=== PATIENT | male | born 1965 | race African-American/Black ===

== ENCOUNTER 2016-08-08 19:00 | Observation (INO) ==
[2016-08-08] MEDS ORDERED: SODIUM CHLORIDE 0.9% 1,000 ML IV STA (19:35)
[2016-08-08] MEDS ORDERED: INSULIN REGULAR 100 UNIT/ML IV STA ×2 (19:35→20:54)
[2016-08-08] MEDS ORDERED: INSULIN REGULAR 100 UNIT/ML ONE (19:45)
--- NOTE | 2016-08-08 19:51 | Emergency Department Note ---
I, Tania Mack, am scribing for, and in the presence of, Nathaly Jim DO 19:43. IHernán Debra, DO, personally performed the services described in this documentation, ascribed by Tania Mack in my presence, and it is both accurate and complete 949 . Arrival - Arrival Chief Complaint: Non-Specific Stated Complaint: DM complications ED Nursing Triage Note: [facility] with c/o elevated blood sugar, 584 at 1840. was seen at [facility] today with a blood in the 800's and was treated and sent home. Mode of Arrival: Stretcher Limitations: No Limitations Source: Patient - History of Present Illness HPI Narrative: Pt is a 50 y/o male who came to ED with c/o elevated glucose of 584 after being seen at [facility] earlier today for glucose in the 800s. Pt has associated sx of extreme thirstiness. He reports coming from [place], [place], today to be seen at [facility] due to [facility] provider is no longer available, since he moved out of [facility] , because of his blood sugar over 800. He states Gandhi lowered the glucose in the 400s, and was d/c. He notes not having a ride and was EMS found him on the road which checked his glucose and was in the 500s, which had shot back up. Pt has not ate a meal since yesterday, and is confused why the blood sugar level would be so high. PMHx of IDDM, HTN. Onset (ago): hour(s) Consistency: constant Severity: mild, moderate Severity scale (1-10): 4 Quality: other Allergies/Adverse Reactions: Allergies Allergy/AdvReac Type Severity Reaction Status Date / Time No Known Allergies Allergy Verified 12/14/14 07:37 Home Medications: Home Medications Medication Instructions Recorded Confirmed Type Insulin NPH Hum/Reg Insulin Hm 25 unit SUBCUT QPM 30 Days 12/16/14 08/08/16 Rx [NovoLIN 70/30] Insulin NPH Hum/Reg Insulin Hm 35 unit SUBCUT QAM 30 Days 12/16/14 08/08/16 Rx [NovoLIN 70/30] Lisinopril/Hydrochlorothiazide 1 each PO QAM 08/08/16 08/08/16 History [Lisinopril-Hctz 10-12.5 mg Tab] Review of System - Review of System 12 point system: reviewed and no additional remarkable complaints except as stated - Review of System Constitutional: Absent: fever, weakness Respiratory: Absent: respiratory distress Cardiovascular: Absent: chest pain, syncope Gastrointestinal: Absent: abdominal pain Skin: Absent: rash Endocrine: Present: polydipsia (extreme) Medical,Surgical,& Family Hx - Medical History Cardio: History of: Hypertension No history of: [place] Neurology: No history of: Peripheral Neuropathy (both feet at times) Endocrine: History of: Diabetes Mellitus (IDDM) No history of: Dyslipidemia - Surgical History Surgical History: noncontributory - Family History Family History: Reports;: Family Diabetes, Family Heart Disease, Family Hypertension - Social History Smoking Status: Never smoker Frequency of Alcohol Use: None Type of Drug Use: None Marital Status: Single Functional capacity: independent ambulation Exam Vital Signs: Vital Signs Temperature 98.4 F 08/08/16 19:12 Pulse Rate 96 H 08/08/16 19:12 Respiratory Rate 20 08/08/16 19:12 Blood Pressure 147/93 08/08/16 19:12 O2 Sat by Pulse Oximetry 100 08/08/16 19:12 Course Course Narrative: spoke to Dr Argueta who will admit the patient. pt is stable Results - Labs CBC & BMP: 08/08/16 19:49 08/08/16 19:49 Lab Results: I have reviewed the patients labs Labs: Laboratory Tests 08/08/16 08/08/16 08/08/16 19:49 19:49 19:49 Hgb 12.8 L Hct 36.6 L Creatinine 1.50 H Glucose 660 H* Calcium 8.4 L Total Protein 6.3 L Urine Color Straw Urine Appearance Clear Urine pH 5.0 Ur Specific [place] 1.026 Urine Glucose (UA) >=500 Urine Blood Negative Urine Urobilinogen < 2.0 H Urine RBC <1 Urine WBC <1 Disposition Clinical Impression: Hyperglycemia Case discussed with: patient Disposition: Still a Patient Condition: Stable Time of Disposition: 20:55
[2016-08-08 20:11] LABS: Basophils % 0.6 % (0.0-0.8); Eosinophils % 0.6 % (0.00-10.9); Hematocrit 36.6 VOL% (42.0-52.0); Hemoglobin 12.8 GM/DL (14.0-18.0); Immature Granulocytes % 0.3 %; Immature Granulocytes Absolute 0.02 #; Lymphocytes # 1.7 10*3/uL (1.4-4.0); Lymphocytes % 23.6 % (21.2-54.2); Mean Corpuscular Hemoglobin 31 PG (27-34); Mean Corpuscular Volume 87.1 FL (87-102); Mean Platelet Volume 11.7 FL (9.6-12.0); Monocytes # 0.5 10*3/uL (0.11-0.8); Monocytes % 6.4 % (1.7-12.7); Neutrophils # 4.8 10*3/uL (1.4-7.4); Neutrophils % 68.5 % (38.7-73.9); Platelet Count 248 T/CUMM (130-400); Red Cell Distribution Width 12.4 % (9.3-17.3)
[2016-08-08 20:18] LABS: Apearance,Urine CLEAR (Clear); Bilirubin,Urine Negative (Negative); Blood, Urine Negative (Negative); Glucose,Urine (UA) >=500 mg/dL (Negative); Ketones,Urine Negative (Negative); Nitrite,Urine Negative (Negative); Protein,Urine Negative; RBC,Urine <1 /HPF (0-4); Urine Color Straw (Yellow); Urine Specific Gravity 1.026 (1.001-1.035); Urine Urobilinogen < 2.0 EU/DL (0.2-1.0); WBC,Urine <1 /HPF (0-6)
[2016-08-08 20:31] LABS: Albumin 3.4 G/DL (3.4-5.0); Bilirubin,Total 0.5 MG/DL (0.2-1.0); Calcium 8.4 MG/DL (8.5-10.1); Potassium 4.7 MMOL/L (3.5-5.1); Total Protein 6.3 G/DL (6.4-8.3)
[2016-08-08] MEDS ORDERED: GLUCAGON 1 MG VIAL IM PRN (20:56)
[2016-08-08] MEDS ORDERED: BISACODYL 5 MG TABLET PO PRN (20:56)
[2016-08-08] MEDS ORDERED: MORPHINE 2 MG/1 ML SYRINGE IV PRN (20:56)
[2016-08-08] MEDS ORDERED: DEXTROSE 50% 25 GM/50 ML VIAL IV PRN (20:56)
[2016-08-08] MEDS ORDERED: ACETAMINOPHEN 325 MG TABLET PO PRN (20:56)
[2016-08-08] MEDS ORDERED: ONDANSETRON 4 MG/2 ML VIAL IV PRN (20:56)
[2016-08-08] MEDS ORDERED: ENOXAPARIN 40 MG/0.4 ML SYRINGE SUBCUT SCH (21:00)
--- NOTE | 2016-08-08 21:00 | Hospitalist History & Physical ---
Assessment and Plan - Time spent with patient Time spent discussing smoking cessation with patient: 3 to 10 minutes (1) Diabetic hyperosmolar non-ketotic state Status: Resolved Current Visit: No (2) Acute renal failure due to tubular necrosis Status: Acute Current Visit: Yes (3) Dehydration Status: Acute Current Visit: Yes (4) Uncontrolled hypertension Status: Resolved Current Visit: No (5) Cocaine abuse Status: Chronic Current Visit: No (6) Medical non-compliance Status: Chronic Assessment and plan: Plan: Admit for aggressive IV fluids, every 4 hr Accu-Cheks and sliding scale Check UDS Hydralazine as needed for elevated blood pressure, restart his lisinopril/HCTZ in the morning Smoking and cocaine cessation strongly encouraged Current Visit: No History of Present Illness Chief complaint: elevated blood sugar, "not feeling well" History of present illness: Mr. Mireles is a 50 year old male seen at [facility] [facility] earlier today due to slip and fall at home. He was treated and released from [facility]. While he was there he had a blood sugar of approximately 800. For this he was given IV fluids, insulin, and sent home. On his way home, he was picked up by [place] police due to some kind of unpaid fine. At the police station his blood sugar was checked and was close to 600 at which time he was brought here via ambulance from [facility]. He admits to noncompliance with his insulin, antihypertensives, and also a relapse of crack cocaine use. He states he is "rationing his insulin," out of his blood pressure medicine for "a little while." He states the last time he used cocaine was a couple of weeks ago. He denies chest pain, shortness of breath, nausea vomiting or diarrhea. No loss of consciousness related to the fall. He has a mild neck ache, 5 out of 10 at worst, relieved with pain medicine. This was evaluated at [facility]. He has required significant amount of IV fluids and his blood sugar still remains elevated so I have been asked to observe the patient overnight. Home Medications Medication Instructions Recorded Confirmed Type Insulin NPH Hum/Reg Insulin Hm 25 unit SUBCUT QPM 30 Days 12/16/14 08/08/16 Rx [NovoLIN 70/30] Insulin NPH Hum/Reg Insulin Hm 35 unit SUBCUT QAM 30 Days 12/16/14 08/08/16 Rx [NovoLIN 70/30] Lisinopril/Hydrochlorothiazide 1 each PO QAM 08/08/16 08/08/16 History [Lisinopril-Hctz 10-12.5 mg Tab] Allergies Allergy/AdvReac Type Severity Reaction Status Date / Time No Known Allergies Allergy Verified 12/14/14 07:37 Medical,Surgical,& Family Hx - Medical History Cardio: History of: Hypertension No history of: [place] Neurology: No history of: Peripheral Neuropathy (both feet at times) Endocrine: History of: Diabetes Mellitus (IDDM) No history of: Dyslipidemia - Surgical History Additional Surgical History: Denies surgical history - Family History Family History: Reports;: Family Diabetes, Family Heart Disease, Family Hypertension - Social History Smoking Status: Current some day smoker Frequency of Alcohol Use: None Type of Drug Use: Cocaine Marital Status: Unknown Functional capacity: independent ambulation Review of systems: A 12 point review of systems is negative except as specified in the HPI Exam - Constitutional Vitals: Period Temp Pulse Resp BP Sys/[place] Pulse Ox Last 24 Hr 98.4 F-98.4 F 96-96 20-20 147-147/93-93 100 Exam: EXAM: CONSTITUTIONAL: non toxic, NAD HEENT: NC, AT, OP poor dentition, DIPESH, EOMI CV: RRR no m/g/r RESP: clear B/L, no w/r/r GI: abd soft, NT, ND, +bowel sounds INTEGUMENTARY: no lesions or rash EXTREMITIES: no c/c/e NEURO: no focal deficits PSYCH: unremarkable, A/O x3 Results - Labs CBC & BMP: 08/08/16 19:49 08/08/16 19:49 Lab Results: I have reviewed the past 24 hour labs
[2016-08-08] MEDS ORDERED: LORazepam 2 MG/1 ML VIAL IV PRN (21:56)
[2016-08-08] MEDS ORDERED: hydrALAZINE 20 MG/1 ML VIAL IV PRN (21:56)
[2016-08-08] MEDS ORDERED: INSULIN REGULAR 100 UNIT/ML SUBCUT SCH (22:00)
[2016-08-08] MEDS: SODIUM CHLORIDE 0.9% 1,000 ML IV SCH (22:07)
[2016-08-08 23:38] LABS: Barbiturates Screen,Urine Negative (Negative); Benzodiazepines Screen,Urine Negative (Negative); Cannabinoid Screen,Urine Negative (Negative); Opiate Screen,Urine Positive (Negative); Phencyclidine Screen,Urine Negative (Negative)
[2016-08-09] MEDS: INSULIN REGULAR 100 UNIT/ML SUBCUT SCH ×4 (00:10→12:30)
[2016-08-09 02:53] LABS: Osmolality,Calculated 287.7 MOS/KG (273-304); Potassium 3.6 MMOL/L (3.5-5.1)
[2016-08-09] MEDS: SODIUM CHLORIDE 0.9% 1,000 ML IV SCH ×3 (03:00→12:33)
[2016-08-09] MEDS ORDERED: INSULIN NPH/REGULAR 70/30 100 UNIT/ML SUBCUT SCH ×2 (09:00→21:00)
[2016-08-09] MEDS ORDERED: PANTOPRAZOLE 40 MG TABLET PO SCH (09:00)
[2016-08-09] MEDS ORDERED: LISINOPRIL/HCTZ 10-12.5 MG TABLET PO SCH (09:00)
--- NOTE | 2016-08-09 10:30 | Discharge Summary ---
Hospital Course - Hospital Course Hospital Course: Mr. Mireles is a 50 year old male seen at [facility] earlier on the day of admission due to slip and fall at home. He was treated and released from [facility]. While he was there he had a blood sugar of approximately 800. For this he was given IV fluids, insulin, and sent home. On his way home, he was picked up by [place] police due to some kind of unpaid fine. At the police station his blood sugar was checked and was close to 600 at which time he was brought to [facility] via ambulance from [facility]. He admitted to noncompliance with his insulin , antihypertensives, and also a relapse of crack cocaine use. He stated that he is "rationing his insulin," out of his blood pressure medicine for "a little while." He stated that the last time he used cocaine was a couple of weeks ago. He was admitted to the hospitalist service for continuation of care. He was started on IV fluids and insulin. His fsg are now much improved. He has reached maximal benefit of inpatient stay and will be discharged home. - Time spent with patient Time with patient DS: Greater than 30 minutes (35) Diagnosis - Discharge Diagnosis (1) Cocaine abuse Status: Chronic (2) Medical non-compliance Status: Chronic (3) Hyperglycemia Status: Resolved (4) Acute renal failure due to tubular necrosis Status: Resolved Discharge Plan - Discharge Data Disposition: Disch To Home/Self Care Condition at Discharge: Stable Discharge Diet: diabetic diet Activity: increase activity as tolerated Hygiene: no restrictions Weight Bearing at Discharge: weight bear as tolerated Contact your physician if you experience:: fever over 101, Shortness of breath - Discharge Medications New Amoxicillin 500 mg PO BID #10 tablet HYDROcodone/ACETAMIN 5-325 [[place] 5-325] 1 tablet PO Q4H PRN #20 tablet PRN Reason: Pain Mild (1-3) Continue Insulin NPH Hum/Reg Insulin Hm [NovoLIN 70/30] 25 unit SUBCUT QPM 30 Days Insulin NPH Hum/Reg Insulin Hm [NovoLIN 70/30] 35 unit SUBCUT QAM 30 Days Lisinopril/Hydrochlorothiazide [Lisinopril-Hctz 10-12.5 mg Tab] 1 each PO QAM - Follow Up or Referral - Forms/Instructions Exam - Constitutional Vitals: Period Temp Pulse Resp BP Sys/[place] Pulse Ox Last 24 Hr 97.8 F-98.4 F 75-96 16-20 131-169/71-107 98-100 General appearance: normal weight - Head Head exam: Present: normocephalic, atraumatic - Eye Eye exam: Present: EOMI Pupils: Present: DIPESH - ENT ENT exam: Present: normal exam - Neck Neck exam: Present: normal inspection - Respiratory Respiratory exam: Present: clear to auscultation bilaterally. Absent: rhonchi, wheezes - Cardiovascular Cardiovascular exam: Present: regular rate and rhythm - GI/Abdominal GI/Abdominal exam: Present: normal bowel sounds, soft. Absent: tenderness, rebound - Extremities Exam Extremities exam: Present: normal inspection - Back Exam Back exam: Present: normal inspection - Neurological Exam Neurological exam: Present: alert, oriented X3 - Psychiatric Psychiatric exam: Present: normal affect, normal mood - Skin Skin exam: Present: warm, intact Discharge Results Labs on day of discharge: Labs from last 24 hours 08/09/16 08/09/16 08/09/16 08:44 08:06 03:56 WBC RBC Hgb Hct MCV MCH MCHC RDW Plt Count MPV Neut % (Auto) Lymph % (Auto) [place] % (Auto) Eos % (Auto) Baso % (Auto) Neut # (Auto) Lymph # (Auto) [place] # (Auto) Eos # (Auto) Baso # (Auto) Immature Gran % Nucleated RBC % Immature Gran # Nucleated RBCs # Sodium Potassium Chloride Carbon Dioxide Anion Gap BUN Creatinine GFR Calculation BUN/Creatinine Ratio Glucose POC Glucose 189 H 67 L 228 H Hemoglobin A1c Calculated Osmolality Calcium Total Bilirubin AST ALT Alkaline Phosphatase Total Protein Albumin Globulin Albumin/Globulin Ratio b-Hydroxybutyric mmol/L Urine Color Urine Appearance Urine pH Ur Specific [place] Urine Protein Urine Glucose (UA) Urine Ketones Urine Blood Urine Nitrate Urine Bilirubin Urine Urobilinogen Urine Leukocytes Urine RBC Urine WBC Ur Culture Indicated? Urine Opiates Screen Ur Barbiturates Screen Ur Phencyclidine Scrn U Amphetamine/Methamph U Benzodiazepines Scrn U Cocaine Metab Screen U Cannabinoids Screen 08/09/16 08/09/16 08/09/16 01:42 01:42 00:08 WBC RBC Hgb Hct MCV MCH MCHC RDW Plt Count MPV Neut % (Auto) Lymph % (Auto) [place] % (Auto) Eos % (Auto) Baso % (Auto) Neut # (Auto) Lymph # (Auto) [place] # (Auto) Eos # (Auto) Baso # (Auto) Immature Gran % Nucleated RBC % Immature Gran # Nucleated RBCs # Sodium 145 Potassium 3.6 Chloride 110 H Carbon Dioxide 28 Anion Gap 10.6 BUN 14 Creatinine 1.00 GFR Calculation 110 BUN/Creatinine Ratio 14.00 Glucose 82 POC Glucose 116 H Hemoglobin A1c 14.4 H Calculated Osmolality 287.7 Calcium 8.0 L Total Bilirubin AST ALT Alkaline Phosphatase Total Protein Albumin Globulin Albumin/Globulin Ratio b-Hydroxybutyric mmol/L Urine Color Urine Appearance Urine pH Ur Specific [place] Urine Protein Urine Glucose (UA) Urine Ketones Urine Blood Urine Nitrate Urine Bilirubin Urine Urobilinogen Urine Leukocytes Urine RBC Urine WBC Ur Culture Indicated? Urine Opiates Screen Ur Barbiturates Screen Ur Phencyclidine Scrn U Amphetamine/Methamph U Benzodiazepines Scrn U Cocaine Metab Screen U Cannabinoids Screen 08/08/16 08/08/16 08/08/16 21:59 20:51 19:49 WBC RBC Hgb Hct MCV MCH MCHC RDW Plt Count MPV Neut % (Auto) Lymph % (Auto) [place] % (Auto) Eos % (Auto) Baso % (Auto) Neut # (Auto) Lymph # (Auto) [place] # (Auto) Eos # (Auto) Baso # (Auto) Immature Gran % Nucleated RBC % Immature Gran # Nucleated RBCs # Sodium Potassium Chloride Carbon Dioxide Anion Gap BUN Creatinine GFR Calculation BUN/Creatinine Ratio Glucose POC Glucose 233 H 450 H Hemoglobin A1c Calculated Osmolality Calcium Total Bilirubin AST ALT Alkaline Phosphatase Total Protein Albumin Globulin Albumin/Globulin Ratio b-Hydroxybutyric mmol/L Urine Color Urine Appearance Urine pH Ur Specific [place] Urine Protein Urine Glucose (UA) Urine Ketones Urine Blood Urine Nitrate Urine Bilirubin Urine Urobilinogen Urine Leukocytes Urine RBC Urine WBC Ur Culture Indicated? Urine Opiates Screen Positive H Ur Barbiturates Screen Negative Ur Phencyclidine Scrn Negative U Amphetamine/Methamph Negative U Benzodiazepines Scrn Negative U Cocaine Metab Screen Positive H U Cannabinoids Screen Negative 08/08/16 08/08/16 08/08/16 19:49 19:49 19:49 WBC 7.0 RBC 4.20 Hgb 12.8 L Hct 36.6 L MCV 87.1 MCH 31 MCHC 35.0 RDW 12.4 Plt Count 248 MPV 11.7 Neut % (Auto) 68.5 Lymph % (Auto) 23.6 [place] % (Auto) 6.4 Eos % (Auto) 0.6 Baso % (Auto) 0.6 Neut # (Auto) 4.8 Lymph # (Auto) 1.7 [place] # (Auto) 0.5 Eos # (Auto) 0.0 Baso # (Auto) 0.0 Immature Gran % 0.3 Nucleated RBC % 0.0 Immature Gran # 0.02 Nucleated RBCs # 0.00 Sodium 136 Potassium 4.7 Chloride 100 Carbon Dioxide 28 Anion Gap 12.7 BUN 15 Creatinine 1.50 H GFR Calculation 69 BUN/Creatinine Ratio 10.00 Glucose 660 H* POC Glucose Hemoglobin A1c Calculated Osmolality 303.0 Calcium 8.4 L Total Bilirubin 0.50 AST 10 ALT 22 Alkaline Phosphatase 74 Total Protein 6.3 L Albumin 3.4 Globulin 2.9 Albumin/Globulin Ratio 1.1 b-Hydroxybutyric mmol/L 0.1 Urine Color Straw Urine Appearance Clear Urine pH 5.0 Ur Specific [place] 1.026 Urine Protein Negative Urine Glucose (UA) >=500 Urine Ketones Negative Urine Blood Negative Urine Nitrate Negative Urine Bilirubin Negative Urine Urobilinogen < 2.0 H Urine Leukocytes Negative Urine RBC <1 Urine WBC <1 Ur Culture Indicated? Not indicated Urine Opiates Screen Ur Barbiturates Screen Ur Phencyclidine Scrn U Amphetamine/Methamph U Benzodiazepines Scrn U Cocaine Metab Screen U Cannabinoids Screen 08/08/16 19:22 WBC RBC Hgb Hct MCV MCH MCHC RDW Plt Count MPV Neut % (Auto) Lymph % (Auto) [place] % (Auto) Eos % (Auto) Baso % (Auto) Neut # (Auto) Lymph # (Auto) [place] # (Auto) Eos # (Auto) Baso # (Auto) Immature Gran % Nucleated RBC % Immature Gran # Nucleated RBCs # Sodium Potassium Chloride Carbon Dioxide Anion Gap BUN Creatinine GFR Calculation BUN/Creatinine Ratio Glucose POC Glucose > 500 H* Hemoglobin A1c Calculated Osmolality Calcium Total Bilirubin AST ALT Alkaline Phosphatase Total Protein Albumin Globulin Albumin/Globulin Ratio b-Hydroxybutyric mmol/L Urine Color Urine Appearance Urine pH Ur Specific [place] Urine Protein Urine Glucose (UA) Urine Ketones Urine Blood Urine Nitrate Urine Bilirubin Urine Urobilinogen Urine Leukocytes Urine RBC Urine WBC Ur Culture Indicated? Urine Opiates Screen Ur Barbiturates Screen Ur Phencyclidine Scrn U Amphetamine/Methamph U Benzodiazepines Scrn U Cocaine Metab Screen U Cannabinoids Screen DS: Provider Date of admission: 08/08/16 20:56 Primary care physician: . No PCP Attending physician on admission: Moe Argueta DO Discharging clinician: Tiesha Alejandra MD
[2016-08-09 13:24] VITALS: BP 165/104
== END 2016-08-09 14:41 | disposition home or self-care (01) ==
LOC: N.ED 19:00 → N.EDINP 19:00 → SUATTDRO 20:56 → N.5E 21:31
PROVIDERS: ADMIT Internal Medicine; ATTEND Internal Medicine

== ENCOUNTER 2018-08-04 10:05 | Inpatient (IN) ==
[2018-08-04] MEDS ORDERED: ACETAMINOPHEN 325 MG TABLET PO PRN (12:45)
[2018-08-04] MEDS ORDERED: INSULIN REGULAR 100 UNIT/ML IV ONE (12:52)
[2018-08-04] MEDS ORDERED: DEXTROSE 50% 25 GM/50 ML VIAL IV PRN ×2 (12:52)
[2018-08-04] MEDS ORDERED: ENOXAPARIN 40 MG/0.4 ML SYRINGE SUBCUT SCH (13:00)
[2018-08-04] MEDS ORDERED: INSULIN REGULAR DRIP 100 ML IV SCH (13:00)
[2018-08-04] MEDS ORDERED: SODIUM CHLORIDE 0.9% 1,000 ML IV SCH (13:00)
[2018-08-04 13:42] LABS: Calcium 8.5 MG/DL (8.5-10.1); Osmolality,Calculated 293.2 MOS/KG (273-304)
[2018-08-04 17:49] LABS: Calcium 8.6 MG/DL (8.5-10.1); Osmolality,Calculated 287.8 MOS/KG (273-304)
[2018-08-04] MEDS: DEXTROSE 5% NACL 0.45% 1,000 ML IV SCH ×2 (19:41→21:59)
[2018-08-04 20:56] LABS: Osmolality,Calculated 288.4 MOS/KG (273-304)
[2018-08-04] MEDS: SODIUM CHLORIDE 0.45% 1,000 ML IV SCH (21:20)
[2018-08-04] MEDS: LISINOPRIL/HCTZ 10-12.5 MG TABLET PO SCH (21:20)
[2018-08-05 00:35] LABS: Calcium 7.4 MG/DL (8.5-10.1); Osmolality,Calculated 289.8 MOS/KG (273-304)
[2018-08-05] MEDS: DEXTROSE 5% NACL 0.45% 1,000 ML IV SCH (03:33)
[2018-08-05 04:03] LABS: Basophils % 0.5 % (0.0-0.8); Eosinophils # 0.1 10*3/uL (0.0-0.87); Eosinophils % 1.6 % (0.00-10.9); Hematocrit 34.9 VOL% (42.0-52.0); Hemoglobin 11.6 GM/DL (14.0-18.0); Immature Granulocytes % 0.4 %; Immature Granulocytes Absolute 0.03 #; Mean Corpuscular HGB Conc 33.2 GM/DL (32-36); Mean Corpuscular Volume 88.4 FL (87-102); Mean Platelet Volume 9.8 FL (9.6-12.0); Monocytes % 5.3 % (1.7-12.7); Neutrophils % 56.2 % (38.7-73.9); Platelet Count 291 T/CUMM (130-400); Red Blood Count 3.95 MC/CUMM (3.8-5.5); Red Cell Distribution Width 12.9 % (9.3-17.3); White Blood Count 8.4 T/CUMM (4-12)
[2018-08-05] MEDS: INSULIN REGULAR 100 UNIT/ML SUBCUT SCH ×2 (04:04→08:43)
[2018-08-05] MEDS: SODIUM CHLORIDE 0.45% 1,000 ML IV SCH (04:05)
[2018-08-05 04:26] LABS: Albumin 2.7 G/DL (3.4-5.0); Calcium 7.8 MG/DL (8.5-10.1); Osmolality,Calculated 289.1 MOS/KG (273-304)
[2018-08-05] MEDS ORDERED: SODIUM CHLORIDE 0.45% 1,000 ML IV SCH (05:53)
[2018-08-05] MEDS: LISINOPRIL/HCTZ 10-12.5 MG TABLET PO SCH (08:44)
== END 2018-08-05 11:30 | disposition home or self-care (01) | DRG 638 ==
LOC: SUATTDRO 11:48 → N.ICU 11:48
PROVIDERS: ADMIT Internal Medicine; ATTEND Internal Medicine Geriatric Medicine

== ENCOUNTER 2018-10-21 13:30 | Inpatient (IN) ==
[2018-10-21] MEDS ORDERED: DEXTROSE 50% 25 GM/50 ML VIAL IV PRN (15:43)
[2018-10-21] MEDS ORDERED: PROMETHAZINE 25 MG/1 ML VIAL IM PRN (15:43)
[2018-10-21] MEDS ORDERED: GLUCAGON 1 MG VIAL IM PRN (15:43)
[2018-10-21] MEDS ORDERED: ONDANSETRON 4 MG/2 ML VIAL IV PRN (15:43)
[2018-10-21] MEDS ORDERED: ACETAMINOPHEN 325 MG TABLET PO PRN (15:43)
[2018-10-21] MEDS ORDERED: INSULIN REGULAR DRIP 100 ML IV PRN (15:46)
[2018-10-21] MEDS: SODIUM CHLORIDE 0.9% 1,000 ML IV SCH ×2 (16:45→23:47)
[2018-10-21] MEDS: INSULIN NPH/REGULAR 70/30 100 UNIT/ML SUBCUT SCH (18:26)
[2018-10-21] MEDS: ENOXAPARIN 30 MG/0.3 ML SYRINGE SUBCUT SCH (20:33)
[2018-10-21] MEDS: GABAPENTIN 100 MG CAPSULE PO SCH (20:33)
[2018-10-21] MEDS ORDERED: hydrALAZINE 20 MG/1 ML VIAL IV PRN (20:45)
[2018-10-22] MEDS ORDERED: INSULIN REGULAR 100 UNIT/ML IV ONE (00:24)
[2018-10-22 04:21] LABS: Basophils % 0.3 % (0.0-0.8); Eosinophils % 0.1 % (0.00-10.9); Hematocrit 34.4 VOL% (42.0-52.0); Hemoglobin 11.8 GM/DL (14.0-18.0); Immature Granulocytes % 0.5 %; Immature Granulocytes Absolute 0.07 #; Lymphocytes # 2.7 10*3/uL (1.4-4.0); Lymphocytes % 18.7 % (21.2-54.2); Mean Corpuscular HGB Conc 34.3 GM/DL (32-36); Mean Corpuscular Volume 86.6 FL (87-102); Mean Platelet Volume 10.2 FL (9.6-12.0); Monocytes % 6.4 % (1.7-12.7); Platelet Count 385 T/CUMM (130-400); Red Blood Count 3.97 MC/CUMM (3.8-5.5); Red Cell Distribution Width 11.9 % (9.3-17.3); White Blood Count 14.5 T/CUMM (4-12)
[2018-10-22 04:36] LABS: Calcium 7.8 MG/DL (8.5-10.1); Osmolality,Calculated 307.7 MOS/KG (273-304)
[2018-10-22] MEDS: DEXTROSE 5% LACTATED RINGERS 1,000 ML IV SCH ×2 (05:30→17:15)
[2018-10-22] MEDS: SODIUM CHLORIDE 0.9% 1,000 ML IV SCH (05:49)
[2018-10-22] MEDS ORDERED: GLUCAGON 1 MG VIAL IM PRN (07:37)
[2018-10-22] MEDS ORDERED: DEXTROSE 50% 25 GM/50 ML VIAL IV PRN (07:37)
[2018-10-22] MEDS: INSULIN LISPRO 100 UNIT/ML SUBCUT SCH ×4 (08:01→20:21)
[2018-10-22] MEDS: INSULIN NPH/REGULAR 70/30 100 UNIT/ML SUBCUT SCH ×2 (08:02→17:14)
[2018-10-22] MEDS: LISINOPRIL/HCTZ 10-12.5 MG TABLET PO SCH (08:03)
[2018-10-22] MEDS: GABAPENTIN 100 MG CAPSULE PO SCH ×2 (08:04→20:21)
[2018-10-22] MEDS: PANTOPRAZOLE 40 MG TABLET PO SCH (08:04)
[2018-10-22] MEDS ORDERED: INSULIN LISPRO 100 UNIT/ML SUBCUT SCH (10:00)
[2018-10-22] MEDS: ENOXAPARIN 30 MG/0.3 ML SYRINGE SUBCUT SCH (20:22)
[2018-10-23] MEDS: INSULIN LISPRO 100 UNIT/ML SUBCUT SCH ×3 (00:06→08:17)
[2018-10-23] MEDS: DEXTROSE 5% LACTATED RINGERS 1,000 ML IV SCH (06:27)
[2018-10-23] MEDS: LISINOPRIL/HCTZ 10-12.5 MG TABLET PO SCH (08:14)
[2018-10-23] MEDS: GABAPENTIN 100 MG CAPSULE PO SCH (08:14)
[2018-10-23] MEDS: PANTOPRAZOLE 40 MG TABLET PO SCH (08:15)
[2018-10-23] MEDS: INSULIN NPH/REGULAR 70/30 100 UNIT/ML SUBCUT SCH (08:15)
[2018-10-23 08:43] VITALS: BP 158/101
== END 2018-10-23 12:04 | disposition home or self-care (01) | DRG 638 ==
LOC: SUATTDRO 14:53 → N.CC 14:53 → N.2E 10-22 10:58
PROVIDERS: ADMIT Internal Medicine; ATTEND Hospitalist